=== PATIENT | male | born 1985 | race Caucasian/White ===

== ENCOUNTER 2023-09-14 11:39 | Emergency (ER) | payer SELFPAY | END 2023-09-14 12:50 | disposition home or self-care (01) | LOC: MW.ED 11:39 | DX: K04.7 Periapical abscess without sinus (principal) | CPT/HCPCS: 99282 ==

== ENCOUNTER 2024-12-25 15:34 | Emergency (ER) | payer SELFPAY ==
[2024-12-25] MEDS: Ketorolac 30 MG/ML SDV IVPUSH ONE (17:16)
[2024-12-25] MEDS: droPERidol 2.5 MG/ML SDV IVPUSH ONE (17:16)
[2024-12-25] MEDS: Sodium Chloride 0.9% 1,000 ML IV ONE (17:17)
[2024-12-25] MEDS: Ibuprofen 600 MG Tab PO ONE (17:28)
[2024-12-25] MEDS: Acetaminophen 500 MG Tab PO ONE (17:28)
== END 2024-12-25 19:25 | disposition home or self-care (01) ==
LOC: MW.ED 15:34
DX: B34.9 Viral infection, unspecified (principal); Z75.3 Unavailability and inaccessibility of health-care facilities; F17.200 Nicotine dependence, unspecified, uncomplicated; J45.909 Unspecified asthma, uncomplicated
CPT/HCPCS: 71046; 87428; 93005; 96361; 96374; 96375; 99285; J1790; J1885; J7030; 93010; 99283